=== PATIENT | female | born 1935 | race Caucasian/White ===

== ENCOUNTER 2017-03-15 14:31 | Inpatient (IN) | payer OTHER ==
[~2017-03-15] VITALS: Ht 157.5 cm; Wt 76.2 kg
[2017-03-15 14:34] VITALS: BP_SYST 125
--- NOTE | 2017-03-15 14:48 | NUR ---
ER at bedside examining patient.
--- NOTE | 2017-03-15 14:48 | NUR ---
Placed in room 3 . Placed on senior software qa engineer, blood pressure machine and pulse oximeter. To gown for exam. Side rails up.
--- NOTE | 2017-03-15 14:59 | NUR ---
# 20 gauge angiocath placed to left hand . Use of asceptic technique. Opsite placed over site. Blood return noted. Blood for lab drawn from site. Flushed with 10 cc of normal saline. No evidence of infiltration noted. Patient tolerated well.
[2017-03-15] MEDS ORDERED: LEVOFLOXACIN 500 MG/D5W 100 ML IV ONE (15:00)
[2017-03-15] MEDS ORDERED: ALBUTEROL SULFATE 0.083% 2.5 MG/3 ML VIAL.NEB INH ONE ×2 (15:00→16:00)
--- NOTE | 2017-03-15 15:00 | NUR ---
brought in by her daughter,pt lives in a [place] home,c/o productive cough for 8 days,completed z-pack. shortness of breath for two days.pt awake,alert,oriented x1.mild distress,speak full sentences.wheezing bilaterally. sinus tach on the monitor.skin warm and dry.
--- NOTE | 2017-03-15 15:10 | NUR ---
OPENING NOTE RECEIVED REPORT FROM ADMISSION NURSE. PATIENT SITTING UPRIGHT IN BED, NO COMPLAINTS OF PAIN AT THIS TIME. NO NOTABLE SIGNS OF DISTRESS AT THIS TIME. PATIENT IS PLEASANTLY CONFUSED. PATIENT HAS A COUGH, NO SPUTUM OR SECRETIONS EXPECTORATED. PATIENTS BED IN LOWEST POSITION, CALL LIGHT WITHIN REACH, AND SIDE RAILS ARE UP FOR SAFETY. BED ALARM IS ON DUE TO CONFUSION, AND SAFETY. WILL CONTINUE TO MONITOR PATIENT FOR CHANGES IN STATUS. Addendum: 03/15/17 at 1902 by Lynda Avila RN [id number].
[2017-03-15 15:17] LABS: BASOPHILS # (AUTO) 0.3 K/uL (0.0-0.2); BASOPHILS % (AUTO) 3.5 % (0.0-2.0); EOSINOPHILS % (AUTO) 10.5 % (0.0-4.0); HEMATOCRIT 29.3 % (36-48); HEMOGLOBIN 9.7 g/dL (12.0-16.0); LYMPHOCYTES # (AUTO) 2.4 K/uL (1.0-5.5); MEAN CORPUSCULAR HEMOGLOBIN 27 pg (27-31); MEAN CORPUSCULAR HGB CONC 33 % (32-36); MEAN CORPUSCULAR VOLUME 81 fL (79.0-98.0); MONOCYTES # (AUTO) 0.9 K/uL (0.0-1.0); MONOCYTES % (AUTO) 8.7 % (1.7-9.3); NEUTROPHILS # (AUTO) 5.3 K/uL (1.8-7.7); NEUTROPHILS % (AUTO) 53.3 % (40.0-70.0); PLATELET COUNT (AUTO) 459 K/uL (130-430); RED BLOOD CELL COUNT(AUTO) 3.61 MIL/uL (4.2-6.2); RED CELL DISTRIBUTION WIDTH 17.1 % (9.0-15.0); WHITE BLOOD COUNT (AUTO) 9.9 K/uL (4.8-10.8)
[2017-03-15 15:19] LABS: ANION GAP 8 (5-15); CALCIUM 8.3 mg/dL (8.4-11.0); CHLORIDE 108 mmol/L (98-107); GLUCOSE 111 mg/dL (70-99); SODIUM SERUM 141 mmol/L (136-145); UREA NITROGEN, BLOOD 21 mg/dL (8-21)
[2017-03-15 15:20] LABS: PROTHROMBIN TIME 10.7 SECS (9.5-12.5)
[2017-03-15 15:21] LABS: POTASSIUM 6.3 mmol/L (3.5-5.1)
[2017-03-15 15:24] LABS: ALANINE AMINOTRANSFERASE 15 U/L (12-78); ALBUMIN 3.2 g/dL (3.4-4.8); ASPARTATE AMINOTRANSFERASE 13 U/L (10-37); TOTAL BILIRUBIN 0.2 mg/dL (0.0-1.0); TOTAL PROTEIN, SERUM 6.5 g/dL (6.4-8.3)
[2017-03-15] MEDS ORDERED: INSULIN REGULAR, HUMAN 10 UNITS/0.1 ML INJ IVP ONE (15:45)
[2017-03-15] MEDS ORDERED: PRO40 PO (15:45)
[2017-03-15] MEDS ORDERED: CARV3.1246 PO (15:45)
[2017-03-15] MEDS ORDERED: SODIUM POLYSTYRENE SULFONATE 15 GM/60 ML UDBTL PO ONE (15:45)
[2017-03-15] MEDS ORDERED: ALPR-372 PO (15:45)
[2017-03-15] MEDS ORDERED: DEXTROSE 50% JECT 50 ML DISP.SYRIN IVP ONE (15:45)
[2017-03-15] MEDS ORDERED: QUET50TA13 PO (15:45)
[2017-03-15] MEDS ORDERED: MEMA10PO MC (15:45)
[2017-03-15] MEDS ORDERED: IPRA3AMP9 INH (15:45)
[2017-03-15] MEDS ORDERED: HALO0.5T PO (15:45)
[2017-03-15] MEDS ORDERED: ALEN70TA27 PO (15:45)
[2017-03-15] MEDS ORDERED: LORA-673 PO (15:45)
[2017-03-15] MEDS ORDERED: QUET25TA34 PO (15:45)
[2017-03-15] MEDS ORDERED: [UNRECOGNIZED DRUG - CODE] PO (15:45)
[2017-03-15] MEDS ORDERED: ASPI-1063 PO (15:45)
[2017-03-15] MEDS ORDERED: SODIUM BICARBONATE 8.4% JECT 50 MEQ/50 ML SYRINGE IVP ONE (15:45)
[2017-03-15] MEDS ORDERED: DOCU250C71 (15:45)
[2017-03-15] MEDS ORDERED: MONT4TAB11 PO (15:45)
[2017-03-15] MEDS ORDERED: CALCIUM CHLORIDE 1 GM/10ML VIAL (13.6 mEq Ca++/VIAL) IVP ONE (15:45)
[2017-03-15] MEDS ORDERED: CITA20SO PO (15:45)
[2017-03-15] MEDS ORDERED: ACET-2165 PO (15:45)
--- NOTE | 2017-03-15 16:13 | NUR ---
Telemetry strip printed, interpreted as SINUS RHYTHM WITH PAC at 85 bpm, and placed on the chart.
[2017-03-15] MEDS ORDERED: methylPREDNISolone SOD SUCC/PF 62.5 MG/ML VIAL IVP ONE (16:15)
[2017-03-15] MEDS ORDERED: CALCIUM CHLORIDE 1 GM/10 ML DISP.SYRIN (14 mEq Ca++/SYR) ONE (16:18)
--- NOTE | 2017-03-15 16:22 | NUR ---
Patient will be admitted to care of . Admitted to unit. Will go to room 135. Belongings list completed. Summary report printed. Report will be given at bedside.
--- NOTE | 2017-03-15 16:55 | NUR ---
ADMISSION NOTE Received patient from ER via gurney. Patient admitted with diagnosis of COPD Excerebration. Patient is awake, alert, oriented X 1 to 2. She follows simple commands but she has dementia. Patient at bedside with daughter and oriented to hospital room, call light, noted return demonstration. Patient informed that Lynda will be the primary nurse and that their room number is 131A. Personal belongings all sent for with daughter. Call light within reach.
[2017-03-15 16:58] VITALS: BP_SYST 142
[2017-03-15] MEDS ORDERED: ACETAMINOPHEN 325 MG TABLET PO PRN (17:30)
[2017-03-15] MEDS: NACL 0.9% 1,000 ML IV SCH (17:30)
--- NOTE | 2017-03-15 17:40 | NUR ---
Dr Glory Alves
--- NOTE | 2017-03-15 18:59 | NUR ---
CLOSING NOTE WAITING TO GIVE REPORT TO BARKEEP NURSE. PATIENT SITTING UPRIGHT IN BED, EATING DINNER. NO COMPLAINTS OF PAIN AT THIS TIME. NO NOTABLE SIGNS OF DISTRESS AT THIS TIME. PATIENT IS PLEASANTLY CONFUSED. PATIENT HAS A COUGH, NO SPUTUM OR SECRETIONS EXPECTORATED. PATIENTS BED IN LOWEST POSITION, CALL LIGHT WITHIN REACH, AND SIDE RAILS ARE UP FOR SAFETY. BED ALARM IS ON DUE TO CONFUSION, AND SAFETY. ALL NEEDS MET AT THIS TIME. WILL CONTINUE TO MONITOR PATIENT FOR CHANGES IN STATUS.
[2017-03-15 19:29] VITALS: BP_SYST 142
[2017-03-15 20:24] VITALS: BP_SYST 136
[2017-03-15] MEDS: ALBUTEROL SULFATE 0.083% 2.5 MG/3 ML VIAL.NEB INH SCH ×2 (20:29→23:00)
[2017-03-15] MEDS: IPRATROPIUM BROM 0.5 MG/2.5 ML VIAL.NEB (ATROVENT) INH SCH ×2 (20:29→23:00)
[2017-03-15] MEDS ORDERED: ALPRAZOLAM 0.25 MG PO SCH (21:00)
--- NOTE | 2017-03-15 21:15 | NUR ---
Patient awake alert HOB elevated skin dry warm assist for position change , chest movement shallow also symmetrical unlabored .
[2017-03-15] MEDS: methylPREDNISolone SOD SUCC/PF 62.5 MG/ML VIAL IVP SCH (21:58)
[2017-03-15] MEDS: QUEtiapine FUMARATE 25 MG TABLET PO SCH (21:59)
[2017-03-15] MEDS: DOCUSATE SODIUM 100 MG CAPSULE PO SCH (22:04)
[2017-03-15] MEDS: HALOPERIDOL 1 MG TABLET (HALDOL) PO SCH (22:05)
[2017-03-15] MEDS: CARVEDILOL 3.125 MG TABLET (COREG) PO SCH (22:05)
[2017-03-15] MEDS: MONTELUKAST 10 MG TABLET PO SCH (22:05)
--- NOTE | 2017-03-16 | NUR ---
Robitussin DM 30 ml po given for cough & helpful .
--- NOTE | 2017-03-16 00:19 | NUR ---
patient is incontinent of urine unable to collect urine at this time , kept clean & dry as needed .
--- NOTE | 2017-03-16 00:22 | NUR ---
HALDOL 0.5 MG PO administer as ordered .
--- NOTE | 2017-03-16 00:23 | NUR ---
SEROQUEL 50 MG PO administer for dementia as ordered / .
--- NOTE | 2017-03-16 00:36 | NUR ---
DR HERNANDEZ here to see patient and at the bedside .
--- NOTE | 2017-03-16 01:18 | NUR ---
Consult Called Reason for consultation: COPD exacerbation Was consult called? Yes Person who was notified: Jennifer Consulting Physician: Milan Mckoy MD Housing Project Manager Specialty: Pulmo Order by Dr. Holder
[2017-03-16 01:24] VITALS: BP_SYST 162
[2017-03-16] MEDS: IPRATROPIUM BROM 0.5 MG/2.5 ML VIAL.NEB (ATROVENT) INH SCH ×6 (03:00→23:14)
[2017-03-16] MEDS: ALBUTEROL SULFATE 0.083% 2.5 MG/3 ML VIAL.NEB INH SCH ×6 (03:00→23:14)
[2017-03-16 04:30] VITALS: BP_SYST 148
--- NOTE | 2017-03-16 06:00 | NUR ---
Reposition & Turning patient kept clean and dry , PT incontinent of urine off loading with pillows , fall precautions implemented & effective .
[2017-03-16] MEDS: NACL 0.9% 1,000 ML IV SCH (06:41)
[2017-03-16] MEDS: methylPREDNISolone SOD SUCC/PF 62.5 MG/ML VIAL IVP SCH ×3 (06:41→22:38)
--- NOTE | 2017-03-16 06:54 | NUR ---
patient Refusing IVF at this time .
--- NOTE | 2017-03-16 07:51 | NUR ---
AM ROUNDS: PATIENT AWAKE,DURING REPORT. NIGHT NURSE SUNNY GIVING REPORT AT BEDSIDE. ON O2 2L/NC. COUGHING HARD,NO DISTRESS. PATIENT PLACED ON BEDPAN PER REQUEST. IVF OFF PER PATIENT'S REQUEST.WILL ENCOURAGE PATIENT TO RE SITE IV ,IV LOOKS INFILTRATED. CONTINUE TO MONITOR.
--- NOTE | 2017-03-16 08:09 | NUR ---
Nutrition Update Amado Scale 17 noted. Pt admitted for Chronic Obstructive Pulmonary Disease Exacerbation Diet: 2 gm Na diet BMI: 30.7 kg/m2 RD to follow per nutrition care standards.
[2017-03-16] MEDS ORDERED: MEMANTINE HCL MC SCH (09:00)
[2017-03-16 09:14] LABS: BILIRUBIN,URINE NEGATIVE (NEGATIVE); BLOOD, URINE NEGATIVE (NEGATIVE); CLARITY/URINE CLEAR (CLEAR); COLOR,URINE YELLOW (YELLOW); GLUCOSE,URINE NEGATIVE (NEGATIVE); KETONES,URINE NEGATIVE (NEGATIVE); LEUKOCYTE ESTERASE ,URINE 1+ (NEGATIVE); NITRITE, URINE NEGATIVE (NEGATIVE); PH,URINE 6.5 (5.0-8.0); PROTEIN URINE NEGATIVE (NEGATIVE); UROBILINOGEN,URINE 0.2 (0.2-1.0)
[2017-03-16 09:20] LABS: BACTERIA,URINE MODERATE /HPF (None Seen); RBC,URINE 0-3 /HPF (0-3)
[2017-03-16 09:27] VITALS: BP_SYST 115
[2017-03-16] MEDS: CITALOPRAM HYDROBROMIDE 20 MG TABLET PO SCH (09:34)
[2017-03-16] MEDS: CARVEDILOL 3.125 MG TABLET (COREG) PO SCH ×2 (09:34→20:26)
[2017-03-16] MEDS: PANTOPRAZOLE SODIUM 40 MG TAB PO SCH (09:34)
[2017-03-16] MEDS: LORATADINE 10 MG TABLET PO SCH (09:34)
[2017-03-16] MEDS: QUEtiapine FUMARATE 25 MG TABLET PO SCH ×2 (09:34→20:24)
[2017-03-16] MEDS: DOCUSATE SODIUM 100 MG CAPSULE PO SCH ×2 (09:35→20:29)
[2017-03-16] MEDS: HALOPERIDOL 1 MG TABLET (HALDOL) PO SCH ×2 (09:35→20:23)
[2017-03-16] MEDS: ASPIRIN 81 MG TABLET(ECOTRIN) PO SCH (09:35)
--- NOTE | 2017-03-16 09:35 | NUR ---
meds: due po meds given.well tolerated. cough meds not available ,called pharmacy technician per diem 2x and spoke with adrianne and stated to send it.
--- NOTE | 2017-03-16 10:00 | NUR ---
iv : iv re sited by mert at right forearm using g#22,dc ivf as ordered.iv to saline lock.
--- NOTE | 2017-03-16 10:50 | NUR ---
DC PLANNING Spoke w Dr Holder in [facility] that thinks pt is OON that stable to transfer. Received msg from [facility] that pt OON wants to have MD to MD. Called & spoke w Tana @ [facility], ph [phone] fax [phone], informed Dr Holder states pt is stable for transfer, gave her Dr Holder's office & cell ph#. States will speak her Physician, have Md to Md, & give me a call back. [facility] transfer is not for sure that if does, contracted hospital that most likely would go to are one of the [facility]. Called & spoke w pt's dtr Kathy Odell, ph [phone], & informed might need to transfer to contracted hospital. [facility] is agreeable w transfer to any contracted hospital. [facility] she already called & spoke w pt's TATA @ [facility] Lucy(does not remember last name). Informed Rosetta, pt's nurse. Addendum: 03/16/17 at 1114 by Barbie MONTERROSO Ordered Radiology CD. Placed transportation packet in nurses station.
--- NOTE | 2017-03-16 11:00 | NUR ---
dc tele: dc tele and changed to med surgical as ordered.
[2017-03-16] MEDS ORDERED: ALPRAZolam 0.25 MG TABLET PO PRN (11:30)
[2017-03-16 11:38] LABS: ANION GAP 3 (5-15); CALCIUM 8.7 mg/dL (8.4-11.0); CHLORIDE 107 mmol/L (98-107); CREATININE 1.35 mg/dL (0.55-1.30); GLUCOSE 107 mg/dL (70-99); POTASSIUM 4.3 mmol/L (3.5-5.1); SODIUM SERUM 139 mmol/L (136-145); UREA NITROGEN, BLOOD 26 mg/dL (8-21)
[2017-03-16 12:27] VITALS: BP_SYST 109
--- NOTE | 2017-03-16 12:35 | NUR ---
meal patient placed on high mehta's position,ready for lunch. needs attended to.
--- NOTE | 2017-03-16 14:40 | NUR ---
ROUNDS: RESTING. NO DISTRESS.
--- NOTE | 2017-03-16 15:49 | NUR ---
ROUNDS: BREATHING TREATMENT ON GOING DURING ROUNDS.
[2017-03-16 16:13] VITALS: BP_SYST 116
--- NOTE | 2017-03-16 17:45 | NUR ---
ROUNDS: PATIENT HAVING DINNER.
[2017-03-16] MEDS: LEVOFLOXACIN 250 MG/D5W 50 ML IV SCH (17:59)
--- NOTE | 2017-03-16 18:54 | NUR ---
closing notes: stable. patient ate dinner already. call light with in reach.needs attended to.
--- NOTE | 2017-03-16 19:35 | NUR ---
initial nursing notes: Patient awake in bed. Patient is oriented to name. Reoriented patient as needed. Patient has IV access on the right forearm. Patient denies of having pain.
[2017-03-16 20:08] VITALS: BP_SYST 142
[2017-03-16] MEDS: MONTELUKAST 10 MG TABLET PO SCH (20:27)
[2017-03-16] MEDS: MEMANTINE HCL 5 MG TABLET PO SCH (20:29)
--- NOTE | 2017-03-16 21:35 | NUR ---
nursing rounds: Patient watching television. Patient uses oxygen via nasal cannula on and off.
--- NOTE | 2017-03-16 23:35 | NUR ---
nursing rounds: Patient asleep in bed. Patient has no shortness of breath.
[2017-03-17 01:15] VITALS: BP_SYST 154
--- NOTE | 2017-03-17 01:35 | NUR ---
nursing rounds: Patient sleeping in bed. Patient's breathing pattern is regular and unlabored.
[2017-03-17] MEDS: ALBUTEROL SULFATE 0.083% 2.5 MG/3 ML VIAL.NEB INH SCH ×3 (03:00→11:10)
[2017-03-17] MEDS: IPRATROPIUM BROM 0.5 MG/2.5 ML VIAL.NEB (ATROVENT) INH SCH ×3 (03:00→11:10)
--- NOTE | 2017-03-17 03:35 | NUR ---
nursing rounds: Patient asleep in bed. Patient has no respiratory distress.
[2017-03-17] MEDS: methylPREDNISolone SOD SUCC/PF 62.5 MG/ML VIAL IVP SCH ×2 (05:04→16:01)
--- NOTE | 2017-03-17 05:35 | NUR ---
nursing rounds: Patient had a bowel movement in bed. Patient was cleaned and bedsheets were changed.
[2017-03-17 05:47] VITALS: BP_SYST 135
[2017-03-17 06:30] LABS: BASOPHILS % (AUTO) 0.3 % (0.0-2.0); EOSINOPHILS % (AUTO) 0.3 % (0.0-4.0); HEMOGLOBIN 9.5 g/dL (12.0-16.0); LYMPHOCYTES # (AUTO) 3.1 K/uL (1.0-5.5); LYMPHOCYTES % (AUTO) 18.8 % (20.5-51.5); MEAN CORPUSCULAR HEMOGLOBIN 26 pg (27-31); MEAN CORPUSCULAR HGB CONC 32 % (32-36); MEAN CORPUSCULAR VOLUME 82 fL (79.0-98.0); MONOCYTES # (AUTO) 1.3 K/uL (0.0-1.0); MONOCYTES % (AUTO) 7.7 % (1.7-9.3); NEUTROPHILS # (AUTO) 11.8 K/uL (1.8-7.7); NEUTROPHILS % (AUTO) 72.9 % (40.0-70.0); PLATELET COUNT (AUTO) 460 K/uL (130-430); RED BLOOD CELL COUNT(AUTO) 3.66 MIL/uL (4.2-6.2); RED CELL DISTRIBUTION WIDTH 17.6 % (9.0-15.0)
[2017-03-17 06:43] LABS: WHITE BLOOD COUNT (AUTO) 16.2 K/uL (4.8-10.8)
[2017-03-17 07:18] LABS: ANION GAP 7 (5-15); CALCIUM 8.9 mg/dL (8.4-11.0); CHLORIDE 107 mmol/L (98-107); CREATININE 1.28 mg/dL (0.55-1.30); FREE T4 (FREE THYROXINE) 0.7 ng/dL (0.6-1.6); GLUCOSE 101 mg/dL (70-99); POTASSIUM 3.9 mmol/L (3.5-5.1); SODIUM SERUM 143 mmol/L (136-145); THYROID STIMULATING HORMONE 2.54 uIu/mL (0.34-4.82); UREA NITROGEN, BLOOD 29 mg/dL (8-21)
--- NOTE | 2017-03-17 07:30 | NUR ---
NRSG: RECEIVED PATIENT HAVING A NONPRODUCTIVE COUGH, AWAKE,ALERT AND ORIENTED TO NAME AND PLACED ONLY. RESPIRATION EVEN AND UNLABORED. LUNGS FINE CRACKLES ON THE BASES. ABDOMEN SOFT WITH BOWEL SOUND X 4 QUADRANTS. IV SITE ON THE LEFT HAND INTACT AND INPLACED AND NO S/S OF INFILTRATION. HOB 30 DEGREES AND CALL LIGHT WITHIN REACH.
--- NOTE | 2017-03-17 07:41 | NUR ---
closing nursing notes: Patient is awake and alert. Patient is in no acute respiratory distress. No episodes of fall and no injuries throughout the supervisor bottle machines. Provided nursing report to incoming morning shift nurse, ESTEPHANIE Trent, at patient's bedside.
[2017-03-17 08:00] VITALS: BP_SYST 130
[2017-03-17] MEDS: LORATADINE 10 MG TABLET PO SCH (09:50)
[2017-03-17] MEDS: CITALOPRAM HYDROBROMIDE 20 MG TABLET PO SCH (09:50)
[2017-03-17] MEDS: DOCUSATE SODIUM 100 MG CAPSULE PO SCH (09:50)
[2017-03-17] MEDS: ASPIRIN 81 MG TABLET(ECOTRIN) PO SCH (09:51)
[2017-03-17] MEDS: CARVEDILOL 3.125 MG TABLET (COREG) PO SCH (09:51)
[2017-03-17] MEDS: HALOPERIDOL 1 MG TABLET (HALDOL) PO SCH (09:52)
[2017-03-17] MEDS: MEMANTINE HCL 5 MG TABLET PO SCH (09:52)
[2017-03-17] MEDS: PANTOPRAZOLE SODIUM 40 MG TAB PO SCH (09:53)
[2017-03-17] MEDS: QUEtiapine FUMARATE 25 MG TABLET PO SCH (09:53)
--- NOTE | 2017-03-17 10:00 | NUR ---
INCONTINENT: INCONTINENT OF B/B . KEPT CLEANED AND DRY. TURNED TO SIDE Q 2 HRS.CALL LIGHT WITHIN REACH.
[2017-03-17 12:07] VITALS: BP_SYST 123
--- NOTE | 2017-03-17 12:44 | NUR ---
ROUNDS: SEEN AND EXAMINED BY DR. TAE MAK ORDERS.
[2017-03-17] MEDS ORDERED: LevALBUTEROL HCL 1.25 MG/0.5 ML *CONC.* VIAL.NEB (XOPENEX CONC.) INH PRN (12:45)
[2017-03-17] MEDS ORDERED: IPRATROPIUM BROM 0.5 MG/2.5 ML VIAL.NEB (ATROVENT) INH PRN (12:45)
[2017-03-17] MEDS ORDERED: LevALBUTEROL HCL 1.25 MG/0.5 ML *CONC.* VIAL.NEB (XOPENEX CONC.) INH SCH (13:00)
[2017-03-17] MEDS ORDERED: IPRATROPIUM BROM 0.5 MG/2.5 ML VIAL.NEB (ATROVENT) INH SCH (13:00)
--- NOTE | 2017-03-17 14:35 | NUR ---
DC PLANNING Spoke diego Holder in [facility] from [facility] never called him for Md to . Called & spoke diego Ivana @ [facility], ph [phone], updated on pt status. States will have their Md call Dr Holder for Md to . Gave her Dr Holder's office & cell#. Dr Holder aware. Addendum: 03/17/17 at 1555 by Lizbet Mascorro RN Updated pt's nurse, Twan, regarding possible transfer to [facility]. Waiting for call from [facility] if going to transfer. Addendum: 03/17/17 at 1637 by Lizbet Mascorro RN Spoke diego Holder in [facility] did Md to & they are going to transfer her to [facility]. States ok to transfer Med/surg via BLS ambulance. Called & spoke diego Chin @ [facility], ph [phone], states that no beds @ [facility] pt going to [facility] room 304B, # for report [phone]. States that ambulance set up for 6pm seed cone picker w [facility] ambulance. Called & left msg w dtr Kathy that insurance wants to transfer pt today to call nursing station. Called & changed [facility] ambulance, ph [phone], to will call, waiting for dtr to be informed. Updated pt's nurse Twan & Charge nurse Michelle. Per Michelle dtr was here recently will call her in a while to see if home to get consent for transfer.
--- NOTE | 2017-03-17 16:00 | NUR ---
ACTIVITY: TURNED TO SIDE, STILL HAVING INTERMITTENT NON PRODUCTIVE COUGH.
[2017-03-17 16:13] VITALS: BP_SYST 147
[2017-03-17 17:12] VITALS: BP_SYST 94
[2017-03-17] MEDS: LEVOFLOXACIN 250 MG/D5W 50 ML IV SCH (17:30)
--- NOTE | 2017-03-17 17:45 | NUR ---
ORDER: GAVE A CALL TO DR. HERNANDEZ REGARDING TRANSFERRING PATIENT TO [facility] .MESSAGE LEFT TO CHRISTINA. WILL WAIT FOR THE RETURN CALL.
--- NOTE | 2017-03-17 19:40 | NUR ---
REPORT: GAVE REPORT TO JESUS WANG PHONE # [phone] AND PATIENT IS GOING TO ROOM 253-B AT [facility] VIA [facility]. ENDORSED TO DIANNA WANG.
--- NOTE | 2017-03-17 19:55 | NUR ---
Initial note A/O x 3, no SOB, no chest pain, denied pain. VS 132/81/82, 16, 93% RA, 97.9. Clear lung sounds with non-productive cough. IV at R FA. IV infiltrated. Small lump noted. Started a new IV x 1, but vein burst, bruise noted at L hand. [facility] ambulance here now. SCD removed. ID bend cut. Skin warm to touch, urinary incontinence, pericare provided. Report given to paramedics. Patient transferred in a good condition.
--- NOTE | 2017-03-17 20:00 | NUR ---
Discharge note [facility] ambulance took out the patient now. Patient in a good condition. No SOB, no chest pain, denied pain.
== END 2017-03-17 20:35 | disposition short-term general hospital (02) | DRG 191 ==
LOC: SED 14:31 → STU 16:16 → SMU 03-16 10:58
PROVIDERS: ADMIT Internal Medicine; ATTEND Internal Medicine
DX: J44.0 Chronic obstructive pulmonary disease with (acute) lower respiratory infection (principal); N17.9 Acute kidney failure, unspecified; E44.0 Moderate protein-calorie malnutrition; N39.0 Urinary tract infection, site not specified; J44.1 Chronic obstructive pulmonary disease with (acute) exacerbation; E87.5 Hyperkalemia; D64.9 Anemia, unspecified; F02.80 Dementia in other diseases classified elsewhere, unspecified severity, without behavioral disturbance, psychotic disturbance, mood disturbance, and anxiety; G30.9 Alzheimer's disease, unspecified; K21.9 Gastro-esophageal reflux disease without esophagitis; F17.200 Nicotine dependence, unspecified, uncomplicated; J20.9 Acute bronchitis, unspecified; E86.0 Dehydration; I10 Essential (primary) hypertension; F32.9 Major depressive disorder, single episode, unspecified; Z86.73 Personal history of transient ischemic attack (TIA), and cerebral infarction without residual deficits; Z88.2 Allergy status to sulfonamides; Z79.899 Other long term (current) drug therapy; Z79.82 Long term (current) use of aspirin; Z68.30 Body mass index [BMI] 30.0-30.9, adult
CPT/HCPCS: 36415; 71010; 80048; 80053; 81000-TC; 83605; 83880; 84439; 84443-TC; 84484; 85025; 85610-TC; 87040-TC; 87086; 87186-TC; 93005; 94640; 94760; 96365; 96375; 99285; J1815; J1956; J2930; J7030